=== PATIENT | female | born 1965 | race Caucasian/White ===

== ENCOUNTER 2023-02-26 16:50 | Emergency (ER) | payer BC, OTHER ==
[~2023-02-26] VITALS: Ht 157.4 cm; Wt 117.9 kg
[2023-02-26 17:20] LABS: BASO # 0.1 10*3/uL (0.0-0.1); BASO % 0.8 % (0.0-1.0); EOS # 0.2 10*3/uL (0.0-0.4); EOS % 2.9 % (1.0-4.0); HEMATOCRIT 44.4 % (37.0-47.0); LYMPH # 1.3 10*3/uL (1.3-4.4); LYMPH % 20.3 % (27.0-41.0); MEAN CELL VOLUME 88.8 fl (81.0-99.0); MEAN CORPUSCULAR HGB 29.8 pg (27.0-31.0); MEAN CORPUSCULAR HGB CONC 33.6 g/dl (33.0-37.0); MEAN PLATELET VOLUME 10.8 fl (9.6-12.3); MONO # 0.5 10*3/uL (0.1-1.0); MONO % 7.6 % (3.0-9.0); NEUT # 4.2 10*3/uL (2.3-7.9); NEUT % 68.2 % (47.0-73.0); PLATELET COUNT AUTOMATED 261 10*3/uL (130-400); RED CELL DISTRI WIDTH 13.2 % (0-14.5); WHITE BLOOD COUNT 6.2 10*3/uL (4.8-10.8)
[2023-02-26 17:41] LABS: ALKALINE PHOSPHATASE 70 U/L (46-116); BUN 13 mg/dl (9-23); CHLORIDE 106 mmol/L (98-107); LIPASE 56 U/L (12-53); POTASSIUM 3.6 mmol/L (3.4-5.1); SGPT/ALT 23 U/L (10-49); TOTAL PROTEIN 6.9 gm/dL (6.0-8.0)
[2023-02-26 19:17] LABS: BILIRUBIN Negative (Negative); BLOOD Negative (Negative); CLARITY Clear (Clear); COLOR Yellow (Yellow); GLUCOSE Negative (Negative); KETONE Trace (Negative); LEUKO ESTERASE Negative (Negative); NITRITE Negative (Negative); PH 6.5 (4.5-8.0); SPECIFIC GRAVITY 1.015 (1.001-1.030)
[2023-02-26 19:31] LABS: BACTERIA 2+; RBC 0-2 rbc/hpf (0-2)
[2023-02-26] MEDS ORDERED: HYDROCODONE-AC1 EACH PO (19:58)
== END 2023-02-26 21:29 | disposition home or self-care (01) ==
LOC: ED 16:50
PROVIDERS: Nurse Practitioner Family
DX: E27.8 Other specified disorders of adrenal gland (principal); N94.89 Other specified conditions associated with female genital organs and menstrual cycle; Z88.8 Allergy status to other drugs, medicaments and biological substances; Z91.040 Latex allergy status; Z98.890 Other specified postprocedural states; F17.290 Nicotine dependence, other tobacco product, uncomplicated